=== PATIENT | female | born 1985 | race African-American/Black ===

== ENCOUNTER 2019-01-18 20:15 | Emergency (ER) | payer OTHER ==
[~2019-01-18] VITALS: Ht 165.1 cm; Wt 99.3 kg
[2019-01-18] MEDS ORDERED: ZYRTEC10 MG PO (20:31)
[2019-01-18] MEDS ORDERED: PEPCID20 MG PO (20:34)
[2019-01-18 20:49] VITALS: BP 118/87
== END 2019-01-18 20:49 | disposition home or self-care (01) ==
LOC: ER 20:15
DX: S60.561A Insect bite (nonvenomous) of right hand, initial encounter (principal); W57.XXXA Bitten or stung by nonvenomous insect and other nonvenomous arthropods, initial encounter; Y93.89 Activity, other specified; Y92.89 Other specified places as the place of occurrence of the external cause; Y99.8 Other external cause status